=== PATIENT | female | born 1950 | race Caucasian/White ===

== ENCOUNTER → 2023-11-02 09:58 | Outpatient (BNVA) | payer MEDICARE, SELFPAY | PROVIDERS: PCP Nurse Practitioner Family; Visit Provider Nurse Practitioner Family | DX: E55.9 Vitamin D deficiency, unspecified (principal); E78.2 Mixed hyperlipidemia; I10 Essential (primary) hypertension; R07.9 Chest pain, unspecified; R73.03 Prediabetes; N28.9 Disorder of kidney and ureter, unspecified; E78.5 Hyperlipidemia, unspecified; Z98.49 Cataract extraction status, unspecified eye | CPT/HCPCS: 80053; 80061; 81003; 82306; 82570; 83036; 83735; 84100; 84156; 84443; 85025 ==

== ENCOUNTER → 2024-01-25 09:53 | Outpatient (BNVA) | payer MEDICARE, MEDICAID, SELFPAY | PROVIDERS: PCP Nurse Practitioner Family; Visit Provider Nurse Practitioner Family | DX: I10 Essential (primary) hypertension (principal); R60.9 Edema, unspecified; N28.9 Disorder of kidney and ureter, unspecified | CPT/HCPCS: 80053; 81003; 83880; 85025 ==

== ENCOUNTER → 2024-02-21 11:01 | Outpatient (BNVA) | payer MEDICARE, MEDICAID, SELFPAY | PROVIDERS: PCP Nurse Practitioner Family; Visit Provider Nurse Practitioner Family | DX: R06.02 Shortness of breath (principal); I10 Essential (primary) hypertension | CPT/HCPCS: 83880 ==

== ENCOUNTER → 2024-04-17 14:41 | Outpatient (BNVA) | payer MEDICARE, MEDICAID, SELFPAY | PROVIDERS: PCP Nurse Practitioner Family; Visit Provider Nurse Practitioner Family | DX: M25.562 Pain in left knee (principal); M17.12 Unilateral primary osteoarthritis, left knee | CPT/HCPCS: 73562 ==

== ENCOUNTER → 2024-05-24 08:58 | Outpatient (BNVA) | payer MEDICARE, MEDICAID, SELFPAY | PROVIDERS: PCP Nurse Practitioner Family; Visit Provider Nurse Practitioner Family | DX: R73.03 Prediabetes (principal); M25.561 Pain in right knee; M25.562 Pain in left knee; G89.29 Other chronic pain; Z12.31 Encounter for screening mammogram for malignant neoplasm of breast; Z12.11 Encounter for screening for malignant neoplasm of colon; M17.0 Bilateral primary osteoarthritis of knee; I10 Essential (primary) hypertension | CPT/HCPCS: 80053; 83036 ==

== ENCOUNTER → 2024-06-02 09:11 | Outpatient (BNVA) | payer MEDICARE, MEDICAID, SELFPAY | PROVIDERS: PCP Nurse Practitioner Family; Referring Provider Nurse Practitioner Family; Visit Provider Nurse Practitioner | DX: M17.0 Bilateral primary osteoarthritis of knee (principal) | CPT/HCPCS: 20610; 73560; 73565; 99204; J1100; J2795; J3301 ==

== ENCOUNTER → 2024-06-06 11:57 | Outpatient (BNVA) | payer MEDICARE, MEDICAID, SELFPAY | PROVIDERS: PCP Nurse Practitioner Family; Visit Provider Nurse Practitioner Family | DX: I10 Essential (primary) hypertension (principal); R73.03 Prediabetes | CPT/HCPCS: 81003; 82043 ==

== ENCOUNTER → 2024-06-27 11:48 | Outpatient (BNVA) | payer MEDICARE, MEDICAID, SELFPAY | PROVIDERS: PCP Nurse Practitioner Family; Visit Provider Nurse Practitioner Family | DX: N39.0 Urinary tract infection, site not specified (principal) | CPT/HCPCS: 81000 ==

== ENCOUNTER → 2024-09-06 09:45 | Outpatient (BNVA) | payer MEDICARE, MEDICAID, SELFPAY | PROVIDERS: PCP Nurse Practitioner Family; Visit Provider Nurse Practitioner | DX: M17.0 Bilateral primary osteoarthritis of knee (principal) | CPT/HCPCS: 20610; 99213; J7318 ==

== ENCOUNTER → 2024-10-19 13:02 | Outpatient (BNVA) | payer MEDICARE, MEDICAID, SELFPAY | PROVIDERS: PCP Nurse Practitioner Family; Visit Provider Nurse Practitioner | DX: M17.0 Bilateral primary osteoarthritis of knee (principal) | CPT/HCPCS: 20610; J1100; J2795; J3301 ==

== ENCOUNTER → 2024-11-29 13:04 | Outpatient (BNVA) | payer MEDICARE, MEDICAID, SELFPAY | PROVIDERS: PCP Nurse Practitioner Family; Visit Provider Nurse Practitioner Family | DX: R73.03 Prediabetes (principal); I10 Essential (primary) hypertension; E55.9 Vitamin D deficiency, unspecified; R60.9 Edema, unspecified; M85.80 Other specified disorders of bone density and structure, unspecified site | CPT/HCPCS: 80053; 80061; 81003; 82306; 83036; 84443; 85025; 87086 ==

== ENCOUNTER → 2025-01-17 07:51 | Outpatient (BNVA) | payer MEDICARE, MEDICAID, SELFPAY | PROVIDERS: PCP Nurse Practitioner Family; Visit Provider Nurse Practitioner | DX: M17.0 Bilateral primary osteoarthritis of knee (principal); Z71.89 Other specified counseling; G89.29 Other chronic pain | CPT/HCPCS: 20610; J1100; J2795; J3301; J9999 ==

== ENCOUNTER → 2025-01-25 09:32 | Outpatient (BNVA) | payer MEDICARE, MEDICAID, SELFPAY | PROVIDERS: PCP Nurse Practitioner Family; Visit Provider Nurse Practitioner Family | DX: R74.8 Abnormal levels of other serum enzymes (principal); R79.89 Other specified abnormal findings of blood chemistry | CPT/HCPCS: 80053 ==

== ENCOUNTER → 2025-03-05 08:43 | Outpatient (BNVA) | payer MEDICARE, MEDICAID, SELFPAY | PROVIDERS: PCP Nurse Practitioner Family; Visit Provider Nurse Practitioner | DX: M17.0 Bilateral primary osteoarthritis of knee (principal); G89.29 Other chronic pain | CPT/HCPCS: 73560; 73565; 99214 ==

== ENCOUNTER 2025-03-21 07:27 | Outpatient (CLI) | payer MEDICAID, SELFPAY ==
--- NOTE | 2025-03-21 07:30 | CT_ITS ---
WS: [id number] CT RIGHT KNEE, NONCONTRAST [facility] TECHNIQUE: Noncontrast CT of the RIGHT knee to include the RIGHT hip and ankle. CLINICAL INFORMATION: pain in right knee COMPARISON: None. DLP: 935.[address] scans at [facility] use at least one of these dose optimization techniques: automated exposure control; mA and/or kV adjustment per patient size (includes targeted exams where dose is matched to clinical indication); or iterative reconstruction. FINDINGS: Advanced tricompartmental arthritis RIGHT knee worse in the lateral joint compartment with [id number] articulation. Hypertrophic changes along the joint line. Vascular calcification. Hypertrophic patella. Osteopenia. Sigmoid diverticulosis CT/CT knee RT [place] [address]28 IMPRESSION: Images obtained for preoperative purposes.
== END 2025-03-21 07:28 | disposition home or self-care (01) ==
PROVIDERS: PCP Nurse Practitioner Family; Visit Provider Nurse Practitioner
DX: M17.0 Bilateral primary osteoarthritis of knee (principal)
CPT/HCPCS: 73700

== ENCOUNTER → 2025-03-28 09:17 | Outpatient (BNVA) | payer MEDICARE, MEDICAID, SELFPAY | PROVIDERS: PCP Nurse Practitioner Family; Visit Provider Nurse Practitioner | DX: M17.0 Bilateral primary osteoarthritis of knee (principal); M25.561 Pain in right knee; M25.562 Pain in left knee; G89.29 Other chronic pain; R79.89 Other specified abnormal findings of blood chemistry | CPT/HCPCS: 80053; 81000; 83036; 85025 ==

== ENCOUNTER → 2025-04-03 08:09 | Outpatient (BNVA) | payer MEDICARE, MEDICAID, SELFPAY | PROVIDERS: PCP Nurse Practitioner Family; Visit Provider Family Medicine | DX: Z01.818 Encounter for other preprocedural examination (principal) | CPT/HCPCS: 93005 ==

== ENCOUNTER → 2025-04-06 10:53 | Outpatient (BNVA) | payer MEDICARE, MEDICAID, SELFPAY | PROVIDERS: PCP Nurse Practitioner Family; Visit Provider Nurse Practitioner | DX: M19.012 Primary osteoarthritis, left shoulder (principal) | CPT/HCPCS: 20610; 73030; 99214; J1100; J2795; J3301; J9999 ==

== ENCOUNTER → 2025-04-20 07:48 | Outpatient (BNVA) | payer MEDICARE, MEDICAID, SELFPAY | PROVIDERS: PCP Nurse Practitioner Family; Visit Provider Nurse Practitioner | DX: M17.12 Unilateral primary osteoarthritis, left knee (principal); Z71.89 Other specified counseling | CPT/HCPCS: 20610; J1100; J2795; J3301; J9999 ==

== ENCOUNTER 2025-04-26 11:09 | Observation (INO) | payer MEDICARE, MEDICAID, SELFPAY ==
[2025-04-26] VITALS (28 sets, daily range): BP systolic 98–191; BP diastolic 47–70; PULSE 53–72; RESP 14–18; TEMP 36.3–36.8; O2SAT 92–100; BMI 38.7; BMI 39.3
[2025-04-26] MEDS: CELEcoxib 200 mg Capsule 400 MG PO (06:45)
[2025-04-26] MEDS: gabapentin 300 mg Capsule PO (06:46)
[2025-04-26] MEDS: sodium chloride 0.9% 1,000 ML 30 ML IV (06:46)
--- NOTE | 2025-04-26 06:52 | P.ANESASSM_ITS ---
Pre-Anesthetic Assessment Height/Weight: Height 1.55 m Weight 92.986 kg Temp Pulse Resp BP Pulse Ox O2 Del Method 97.5 F L 67 18 191/60 100 Room Air 04/26/25 06:35 04/26/25 06:35 04/26/25 06:35 04/26/25 06:35 04/26/25 06:35 04/26/25 06:40 Operation Date: 04/26/25 07:00 Proposed Procedures p Right Todd Robot Total Knee Arthroplasty(Right) - Natalya Uribe MD Familial anesthetic complications: None Was Beta Sonal taken within 24 hours: N/A Was Clonidine taken within 24 hours: N/A Last intake: Intake Last Liquid Date 04/25/25 Last Liquid Time 21:30 Last Solid Date 04/25/25 Last Solid Time 21:30 Social No alcohol and No tobacco Exam alert, oriented x 3, clear to auscultation bilaterally and regular rate & rhythm Airway Mallampati: Class I CV/HEM Hypertension Metabolic Hyperlipidemia Anesthetic Plan ASA status: 2 Anesthesia: Regional (specify below) Other: Spinal + exparel injection Risk of > 500 ml blood loss (7ml/kg in children): No Medications/Allergies Home Medications ?Medication ?Instructions ?Recorded ?Confirmed ?Last Taken ?Type acetaminophen 500 mg tablet 1,000 mg (2 x 500 mg) PO B ID PRN 11/26/23 04/25/25 Unknown Rx pain 90 days #360 tabs ergocalciferol (vitamin D2) 1,250 50,000 unit PO .week ly #4 caps 11/29/23 04/25/25 04/22/25 Rx mcg (50,000 unit) capsule (Vitamin D2) Bedside Toilet #1 ea 04/12/24 04/20/2504/02 Rx semaglutide 7 mg tablet (Rybelsus) 7 mg PO DAILY #30 t abs 03/23/25 04/25/25 04/19/25 Rx hydralazine 50 mg tablet 50 mg PO BID #180 tabs 03/2704/25/25 04/26/25 04:00 Rx lisinopril 40 mg tablet 40 mg PO DAILY #90 tabs 04/0104/25/25 04/25/25 Rx miscellaneous medical supply #1 ea 04/23/25 04/25/25 Rx diclofenac sodium 1 % topical gel 2 g topical QID PRN Pain, Mild 04/25/25 04/25/25 Unknown History (Voltaren Arthritis Pain) rosuvastatin 20 mg tablet 20 mg PO DAILY 04/25/2504/0204/25/25 History Allergies Allergy/AdvReac Type Severity Reaction Status Date / Time No Known Allergies Allergy Verified 04/20/25 07:59 [facility] Anesthesia Medical History (Updated 04/23/25 @ 20:39 by JAIRON Larkin) Patient is scheduled for surgical procedure Osteoarthritis of left knee Rotator cuff arthropathy of left shoulder Primary osteoarthritis, left shoulder Osteoarthritis of right knee Elevated serum creatinine Elevated liver enzymes Obesity Metabolic syndrome Decreased renal function Vitamin D deficiency Urinary tract infection Osteoarthritis of knees, bilateral Enrolled in chronic care management Osteopenia Tricompartment osteoarthritis of both knees Postmenopausal Osteoarthritis, knee Osteoarthritis Chronic knee pain Shortness of breath Edema Colon cancer screening Arthritis pain Prediabetes Chest pain Hypertension Mixed hyperlipidemia Surgical History S/P hysterectomy S/P gastric surgery S/P cataract surgery Social History Smoking and tobacco/nicotine status: never used tobacco/nicotine Current occupation: Retired
[2025-04-26] MEDS: acetaminophen 1,000 MG/100 ML PIGGYBACK 400 MG IV ×3 (06:55→23:33)
--- NOTE | 2025-04-26 06:59 | W.PM.OPSUD ---
Surgery/Procedure H&P Update DATE OF PROCEDURE: April 26, 2025 DATE H&P PERFORMED: 04/20/25 H&P UPDATE INFORMATION: I have reviewed H&P completed within last 30 days, I have examined patient prior to procedure, No changes to prior documentation, H&P is in [facility] EMR on date indicated and Risks and benefits of the procedure reviewed PLANNED PROCEDURE: Operation Date: 04/26/25 07:00 Proposed Procedures p Right Todd Robot Total Knee Arthroplasty(Right) - Natalya Uribe MD Related Problem List Diagnoses (1) Osteoarthritis of right knee: Qualifiers: Osteoarthritis type: primary Qualified Code(s): M17.11 - Unilateral primary osteoarthritis, right knee
[2025-04-26] MEDS: ceFAZolin 2,000 mg SDV 2000 MG IVP ×3 (07:02→23:20)
[2025-04-26] MEDS: tranexamic acid 1,000 mg/10mL SDV 1000 MG (07:45)
[2025-04-26] MEDS: ceFAZolin 1,000 mg SDV 2000 MG IRRIGATION (08:08)
[2025-04-26] MEDS: BUPivacaine liposome 13.3 mg/mL SDV 20 mL 266 MG INFILTRATI (08:11)
[2025-04-26] MEDS: BUPivacaine 0.5% INJ 30 mL XX (08:11)
[2025-04-26] MEDS: vancomycin 1,000 MG SDV 1000 MG INTRA-ARTI (08:13)
--- NOTE | 2025-04-26 10:06 | XR_ITS ---
WS: [id number] Exam: XR knee RT 1-2V [id number] Date/Time of Exam: 04/26/2025 10:06 AM Reason For Exam: Status post right total knee arthroplasty Comparison 03/05/2025. RIGHT total knee arthroplasty is in satisfactory position. Postop changes in the adjacent soft tissues. Anterior surgical skin clips. XR/XR knee RT 1-2V [id number] IMPRESSION: 1. RIGHT total knee replacement in satisfactory position.
[2025-04-26] MEDS: fentaNYL 50 mcg/mL INJ 2mL IVP ×2 (10:13→10:27)
--- NOTE | 2025-04-26 10:31 | PM.OP ---
Operative Report Date of procedure: April 26, 2025 Pre-op diagnosis: Severe degenerative osteoarthritis right knee with valgus deformity and hyperextension Post-op diagnosis: Severe degenerative osteoarthritis right knee with valgus deformity and hyperextension Post-op findings: Severe degenerative osteoarthritis right knee with hyperextension, valgus deformity, and obesity. Procedure done: Right total knee arthroplasty with Todd guidance Implants: The Leanne total knee system with a size 3 triathlon beaded cruciate retaining femur right, a triathlon titanium tibial component size 2 beaded, a triathlon X3 tibial bearing CS insert size 2 x 11 mm and a beaded triathlon titanium asymmetric patella size 32 x 10 mm Specimens removed/disposition: Bone, disposed of Pathology: None Surgeon: Natalya Uribe MD Jacquard Fixer: Mai Berger whose services were required for retraction, positioning, intraoperative exposure, and closure Anesthesia: Spinal (With MAC, ASA 2) Estimated blood loss (mL): 180 Tourniquet time (min): 0 (Not utilized) IV fluids (mL): 1,600 (Normal saline with additional 150 mL albumin) Urine output (mL): 150 Complications: None Findings: As noted above Condition: stable Disposition: PACU (Then to the floor for postoperative rehabilitation and pain management) Brief History: This 74-year-old woman presented with complaints of severe right knee pain. The patient has significant limitations in her activities of daily living. X-rays demonstrated severe degenerative osteoarthritis with valgus deformity. She failed anti-inflammatory medications, corticosteroid injections, viscosupplementation injections attempted bracing and physical therapy. Right total knee arthroplasty was discussed. The patient wished to proceed with total knee arthroplasty understanding the risks and complications. She was seen the morning of surgery and given further opportunity to ask questions and have them answered. Procedure: The patient was brought to the operating theater, and after undergoing adequate spinal anesthesia with MAC, ASA 2, the right lower extremity was prepped with Dura-Prep and draped in usual fashion following placement of a tourniquet high on the leg. The leg was then draped free.? Tourniquet was not elevated throughout the surgical procedure. Prior to commencement of the procedure, a surgical pause was performed, and at the time of the surgical pause, we confirmed the site and side of surgery. Additionally, we confirmed the appropriate and timely administration of preoperative antibiotics, Ancef 2 g.? The availability of equipment was confirmed, and the patient's identity was verbalized as well. Following the surgical pause, an incision was made centering over the patella continuing proximally and distally as necessary to allow access to the knee joint. Dissection continued through skin and soft tissues using a scalpel. Hemostasis was obtained using electrocautery. The skin incision was followed by a median parapatellar arthrotomy. The leg was extended and the patella was able to be displaced laterally.? Appropriate arrays and markers were placed in appropriate position for use of the Todd.? Preoperative planning had been accomplished and was discussed in detail with the [facility] bank representative.? Intraoperative mapping of the femur and tibia was accomplished after the arrays were placed.? Internal markers were also placed.? Once we had accomplished the Todd mapping, we began the appropriate resections for placement of the prosthesis.? The plan was for a cruciate retaining right total knee arthroplasty. Once appropriate mapping had been accomplished retraction was established using manual retraction by surgical technicians and also the Todd leg positioner and retractors.? The knee was evaluated.? There was significant osteoarthritic change as well as a significant flexion contracture and severe varus deformity.? Appropriate bone resection was accomplished using the Todd.? The femur was sized to a size 3.? Following femoral cuts, attention was directed to the tibia.? Osteophytes were removed prior to this portion of the procedure.? We had performed a medial release at the beginning of the procedure to allow for placement of the array.? Proximal tibia was evaluated, and it was felt that appropriate size for the tibia was a size 2.? The size 2 tray was noted to fit nicely with good coverage.? Rim fit was accomplished with the size 2. A trial reduction was accomplished after osteophytes have been removed as well as the medial and lateral menisci.? We had removed the anterior cruciate ligament at the beginning of the case and preserved the posterior cruciate ligament.? Trial reduction was accomplished with a size 3 femoral cruciate retaining component, a size 2 tibial tray and a size 2 CS tibial bearing insert which initially was a 9 mm thickness. After trial with this, a trial reduction was accomplished with a size 2 x 10 mm tibial bearing insert, CS. After this trial, plans were made for an 11 mm CS tibial bearing insert. Alignment was felt to be appropriate as well.? Trial components were removed after the femur had been drilled.? Prior to removal of the tibial tray which had been pinned in position with appropriate rotation as determined by the Todd plan, we broached the tibia.? Subsequently, the 4 drill holes were made for the prosthetic component.? All trial components were removed, and the wound was irrigated.? Plans were made for insertion of the prosthetic components.? Prior to this, the patella was manually prepared.? After resection of the articular surface with the jogging system, it was measured and measured a 32 mm patella.? We resected approximately 8 mm of patella.? Patellar height was restored with the patellar component. Once again, the wound was irrigated. The Tritanium tibia was impacted into position.? The beaded femur was then impacted into position in a cementless fashion. The CS tibial insert was placed prior to placement of the femoral component. The patella was pressed into position with a patellar clamp.? Exparel was injected about the components deep and superficially.? The knee was then copiously irrigated with betadine and saline and suctioned dry. Attention was then directed to closure. Closure was accomplished with 0 Vicryl in the fascial tissues.? The suture line of 0 Vicryl was supplemented with strata fix, #1, with a running suture from proximal to distal and a second running stitch from distal to proximal.? This was followed by Surgiflo and vancomycin powder.? Following this, a 2-0 Strata Fix was used in the subcutaneous tissues, and the skin was closed with 3-0 Strata fix.? Care was taken to assure an excellent subcutaneous as well as skin closure.? A sterile dressing was then placed consisting of Dermabond Prineo, OpSite, ABD, sterile soft roll, and an Nam wrap including over the foot. The patient was returned the Recovery Room in a satisfactory condition. X-rays were obtained and reviewed there.? The patient will be discharged to the floor for postoperative rehabilitation and pain management. Related Problem List Diagnoses (1) Osteoarthritis of right knee: (2) Obesity, Class II, BMI 35-39.9:
[2025-04-26] MEDS: HYDROmorphone 1 mg/mL INJ 1ml 0.5 MG IVP (10:48)
[2025-04-26] MEDS: oxyCODONE 5 mg IR Tab/Cap PO ×3 (11:31→21:18)
--- NOTE | 2025-04-26 12:14 | PC.PHAR ---
Pt takes care of her own medications. Pt has 2 orders for lisinopril-1st is Lisinopril-hctzs 20-25 qam, and Lisinopril 40mg qpm. Pt no longer uses Trulicity.
[2025-04-26] MEDS: ondansetron 2 mg/ML SDV 2 mL 4 MG IVP (13:03)
[2025-04-26] MEDS: chlorhexidine gluconate 0.12% Btl 473 mL 30 ML MUCOUS MEM ×3 (13:03→21:18)
[2025-04-26] MEDS: tranexamic acid 1,000 MG/100 ML PREMIX 600 MG IV (13:25)
--- NOTE | 2025-04-26 13:47 | ANE.PACU2 ---
Inpatient post-anesthesia follow up: Airway intact: Yes Vital signs: Temperature 97.4 F Pulse Rate 60 Respiratory Rate 16 Blood Pressure 154/59 Pulse Oximetry 92 Oxygen Delivery Me thod Room Air Oxygen Flow Rate Fraction of Inspir ed Oxygen Hydration adequate: Yes Nausea and vomiting: No Pain level: 1 Mental status: Baseline
[2025-04-26] MEDS: metoclopramide 5 mg/mL SDV 2 mL 10 MG IV (14:30)
[2025-04-26] MEDS: sennosides-docusate Tablet 2 TAB PO (17:08)
[2025-04-26] MEDS: iron polysaccharide complex 150 mg Capsule PO (17:08)
[2025-04-26] MEDS: calcium carbonate 500 mg Chew Tablet 1000 MG PO (17:08)
[2025-04-26] MEDS: mupirocin oint 22 gm 1 APPLIC NASAL (17:09)
[2025-04-27 04:07] VITALS: RESP 16; O2SAT 97
[2025-04-27] MEDS: oxyCODONE 5 mg IR Tab/Cap PO ×3 (04:07→14:21)
[2025-04-27] MEDS: ondansetron 2 mg/ML SDV 2 mL 4 MG IVP (04:12)
[2025-04-27 04:34] LABS: Basophils % 0.1 %; Eosinophils % 0.1 %; Hematocrit 35.1 % (36-47); Lymphocytes % 7.5 %; Mean Corpuscular HGB Conc 31.9 g/dL (30-55); Mean Corpuscular Hemoglobin 29.2 pg (27-33); Mean Corpuscular Volume 91.6 fl (85-98); Mean Platelet Volume 9.5 fL (7.4-10.4); Monocytes # 0.9 10^3/uL (0.2-0.9); Monocytes % 6.7 %; Neutrophils % 85.2 %; Nucleated Red Blood Cells % 0 %; Platelet Count 161 10^3/cmm (157-399); Red Blood Count 3.83 10^6/uL (3.85-5.65); Red Cell Distribution Width 13.6 % (12.1-15.1); White Blood Count 13.63 10^3/uL (3.29-11.43)
[2025-04-27 04:55] LABS: Anion Gap 15.2 (5-19); Blood Urea Nitrogen 26 mg/dL (8-23); Calcium 8.9 mg/dL (8.5-10.5); Carbon Dioxide 23 mmol/L (22-29); Chloride 102 mmol/L (98-107); Creatinine Clr Calc Pharmacy 56.9612; Glucose 140 mg/dL (65-115); Osmolality Calculated 289 mOsm/kg (285-295); Potassium 4.2 mmol/L (3.5-5.1); Sodium 136 mmol/L (136-145)
[2025-04-27 06:00] VITALS: BMI 39.3
[2025-04-27] MEDS: acetaminophen 1,000 MG/100 ML PIGGYBACK 400 MG IV (07:15)
[2025-04-27] MEDS: chlorhexidine gluconate 0.12% Btl 473 mL 30 ML MUCOUS MEM ×2 (08:44→14:21)
[2025-04-27] MEDS: ceFAZolin 2,000 mg SDV 2000 MG IVP (08:45)
[2025-04-27] MEDS: multivitamin therapeutic Tablet 1 TAB PO (08:47)
[2025-04-27] MEDS: mupirocin oint 22 gm 1 APPLIC NASAL (08:47)
[2025-04-27] MEDS: iron polysaccharide complex 150 mg Capsule PO ×2 (08:47→17:31)
[2025-04-27] MEDS: sennosides-docusate Tablet 2 TAB PO ×2 (08:47→17:31)
[2025-04-27 08:49] VITALS: RESP 15
[2025-04-27] MEDS: cholecalciferol (vitamin D3) 1,000 unit Tablet 1000 UNIT PO (08:49)
[2025-04-27 09:00] VITALS: BP 151/87; PULSE 62; RESP 15; TEMP 36.9; O2SAT 98
[2025-04-27 14:21] VITALS: RESP 16
--- NOTE | 2025-04-27 14:29 | PM.DCS ---
Discharge Providers Date of Admission: 04/26/25 11:09 Date of Discharge: April 27, 2025 Attending Provider at Admission: Natalya Uribe MD Attending Provider at Discharge: Natalya Uribe MD Primary Care Provider: JAIRON Rodarte Diagnoses at Discharge Discharge Diagnosis (1) Osteoarthritis of right knee: Status: Chronic Qualifiers: Osteoarthritis type: primary Qualified Code(s): M17.11 - Unilateral primary osteoarthritis, right knee (2) Obesity, Class II, BMI 35-39.9: Status: Acute (3) Status post total right knee replacement not using cement: Status: Acute Permanent problem details: Date of procedure: April 26, 2025 Diagnosis: Severe degenerative osteoarthritis right knee with valgus deformity and hyperextension Procedure done: Right total knee arthroplasty with Todd guidance Implants: The [employer] total knee system with a size 3 triathlon beaded cruciate retaining femur right, a triathlon titanium tibial component size 2 beaded, a triathlon X3 tibial bearing CS insert size 2 x 11 mm and a beaded triathlon titanium asymmetric patella size 32 x 10 mm Reason for Visit Reason for Visit: M17.11 Brief History: This 74-year-old woman presented with complaints of severe right knee pain. The patient has significant limitations in her activities of daily living. X-rays demonstrated severe degenerative osteoarthritis with valgus deformity. She failed anti-inflammatory medications, corticosteroid injections, viscosupplementation injections attempted bracing and physical therapy. Right total knee arthroplasty was discussed. The patient wished to proceed with total knee arthroplasty understanding the risks and complications. She was seen the morning of surgery and given further opportunity to ask questions and have them answered. Physical Exam Const: COMMON NORMALS: no acute distress, patient oriented x3 and alert; negative for average body habitus GENERAL APPEARANCE: cooperative and comfortable NUTRITIONAL APPEARANCE: obese ORIENTATION/CONSCIOUSNESS: Yes awake HENMT: COMMON NORMALS: normocephalic and atraumatic HEAD & SCALP: normocephalic and atraumatic Eye: GENERAL EYE: appearance normal, both eyes and all related structures Chest: COMMONS NORMALS: normal inspection of the chest Resp: COMMON NORMALS: normal respiratory effort EFFORT & INSPECTION: Yes able to speak in complete sentences and Yes symmetric chest movement Extremity: RIGHT LOWER EXTREMITY: Yes knee joint (Dressing is dry and intact) Right knee: Yes inspection (No significant swelling or bruising), Yes ROM (Not evaluated) and Yes neurovascular exam (Intact distally with no evidence of DVT) Neuro: COMMON NORMALS: patient oriented x3 SENSORIUM/ORIENTATION: Yes alert Psych: COMMON NORMALS: mental status grossly normal APPEARANCE: Yes grossly normal ATTITUDE: Yes calm and Yes engaged ATTENTION/CONCENTRATION: Yes attention grossly intact Skin: COMMON NORMALS: no rashes or lesions noted GENERAL SKIN EXAM: no rashes or lesions noted Urinary Catheter Management: Campos: Cath Placed During This Visit: yes, but has since been removed by the nurse Reason for Continuing Indwelling Catheter: Decision to DC Catheter Date Urinary Catheter Removed: 04/27/25 Time Urinary Catheter Discontinued: 09:30 Discharge Data Studies Completed and Pending Completed Studies During Hospitalization Category Date Time Status XR knee RT 1-2V [id number] Routine Exams 04/26/25 10:06 Completed Radiology Impressions Knee X-Ray 04/26/25 10:06 IMPRESSION: 1. RIGHT total knee replacement in satisfactory position. Laboratory Results WBC 13.63 10^3/uL (3.29-11.43) H 04/27/25 04:15 RBC 3.83 10^6/uL (3.85-5.65) L 04/27/25 04:15 Hgb 11.20 g/dL (11.27-16.99) L 04/27/25 04:15 Hct 35.1 % (36-47) L 04/27/25 04:15 MCV 91.6 fl (85-98) 04/27/25 04:15 MCH 29.2 pg (27-33) 04/27/25 04:15 MCHC 31.9 g/dL (30-55) 04/27/25 04:15 RDW 13.6 % (12.1-15.1) 04/27/25 04:15 Plt Count 161 10^3/cmm (157-399) 04/27/25 04:15 MPV 9.5 fL (7.4-10.4) 04/27/25 04:15 Neut % (Auto) 85.2 % 04/27/25 04:15 Lymph % (Auto) 7.5 % 04/27/25 04:15 Limestone % (Auto) 6.7 % 04/27/25 04:15 Eos % (Auto) 0.1 % 04/27/25 04:15 Baso % (Auto) 0.1 % 04/27/25 04:15 Neut # (Auto) 11.60 10^3/uL (1.8-7.7) H 04/27/25 04:15 Lymph # (Auto) 1.0 10^3/uL (0.8-4.8) 04/27/25 04:15 Limestone # (Auto) 0.9 10^3/uL (0.2-0.9) 04/27/25 04:15 Eos # (Auto) 0.0 10^3/uL (0.0-0.8) 04/27/25 04:15 Baso # (Auto) 0.0 10^3/uL (0.0-0.1) 04/27/25 04:15 Nucleated RBC % (auto) 0 % 04/27/25 04:15 Nucleated RBCs # 0.0 /100WBC 04/27/25 04:15 Sodium 136 mmol/L (136-145) 04/27/25 04:15 Potassium 4.2 mmol/L (3.5-5.1) 04/27/25 04:15 Chloride 102 mmol/L (98-107) 04/27/25 04:15 Carbon Dioxide 23 mmol/L (22-29) 04/27/25 04:15 Anion Gap 15.2 (5-19) 04/27/25 04:15 BUN 26 mg/dL (8-23) H 04/27/25 04:15 Creatinine 0.9 mg/dL (0.5-0.9) 04/27/25 04:15 GFR Calculation Not Reportable 04/27/25 04:15 Glucose 140 mg/dL (65-115) H 04/27/25 04:15 Calculated Osmolality 289 mOsm/kg (285-295) 04/27/25 04:15 Calcium 8.9 mg/dL (8.5-10.5) 04/27/25 04:15 Vitals Last Vital Signs Temp 98.5 F 04/27/25 09:00 Pulse 62 04/27/25 09:00 Resp 16 04/27/25 14:21 BP 151/87 04/27/25 09:00 Pulse Ox 98 04/27/25 09:00 O2 Del Method Room Air 04/27/25 09:00 Discharge Plan Discharge Patient Disposition: Home Health Service Condition: Stable Prescriptions: New aspirin 325 mg Tablet,Delayed Release (Dr/Ec) 325 mg PO DAILY 30 Days Qty: 30 0RF oxycodone 5 mg Tablet 5 mg PO Q4H PRN (Reason: Moderate To Severe Pain) 7 Days Qty: 30 0RF Continued (DME) Bedside Toilet See Rx Instructions .Route .MEDSUPPLY Qty: 1 0RF Rx Instructions: As directed Rybelsus 7 mg tablet 7 mg PO DAILY Qty: 30 1RF hydralazine 50 mg tablet 50 mg PO BID Qty: 180 0RF (DME) miscellaneous medical supply Misc See Rx Instructions .Route Qty: 1 0RF Rx Instructions: As directed Bedside Commode kit for PRN use. rosuvastatin 20 mg tablet 20 mg PO DAILY diclofenac sodium [Voltaren Arthritis Pain] 1 % gel 2 g topical QID PRN (Reason: Pain, Mild) Rx Instructions: apply to area of pain lisinopril-hydrochlorothiazide 20-25 mg tablet 1 tab PO QAM lisinopril 40 mg tablet 40 mg PO QPM Held acetaminophen 500 mg tablet 1,000 mg PO BID PRN (Reason: pain) 90 Days Qty: 360 1RF Hold Instructions: Until 15 days of 3 times per day Discharge Orders: Discharge Order (Routine); Ordered 04/27/25 Ordered By: Natalya Uribe Other Ambulatory Orders: DME: Walker (Order) Location: None Selected Ordered By: Natalya Uribe Referrals: [facility] [Outside] Natalya Uribe MD [Physician, Orthopedics] - 05/14/25 8:30 am Discharge Diet: Advance as tolerated and Usual diet Discharge Activity: Increase activity as tolerated, Limit activity as instructed, Use walker/crutches as instructed and As per PT/OT instructions Patient Instructions: Acute Wound Care (DC), Precautions after Total Joint Replacement Surgery (GEN), Total Knee Replacement (GEN), Opioid Safety, Post Anesthesia Care, Patient Portal & Ashok Instructions Activity Restrictions/Additional Instructions: Ice and elevation to right knee. You may weight-bear as tolerated. Physical therapy to instruct in ambulation, strengthening, and gait training. You may shower after you get home, but do not submerge the knee in water. Maintain dressing until you are seen in the office unless it lifts up and begins to leak. If it does, you may remove the dressing but leave the sheath clot type material in place. Discharge Attestations Time Spent in Discharge Care*: greater than 30 min Specific Discharge Activities: educating patient, documenting/other paperwork and evaluating patient/reviewing data Quality Metrics Clinical Quality Measures [ No reported AMI, CVA or VTE this stay] Coding Level of Care Code Acute Code for Chg Fwd Diagnoses Primary osteoarthritis of right knee M17.11 Osteoarthritis type: primary Obesity, Class II, BMI 35-39.9 E66.812 Status post total right knee replacement not using cement Z96.651
--- NOTE | 2025-04-27 17:01 | PC.NURSE ---
I received a call from Crys Cazares, RN stating that as patient was preparing to leave, she mentioned that her walker at home is a rollator walker, not a FWW. Edith asked if that was adequate and I told her we could place an order for a FWW as it would be more stable for patient. I called and spoke with Dr. Uribe and informed her of this and she is in agreement with the FWW for patient's home use. I placed the order as instructed and printed it to OB. I called back and spoke with Edith and reviewed the information with her and provided her instructions on calling HOME to inform them of the order, faxing the order to them, and providing a copy of the printed order if needed when they presented with the walker. She verbalizes understanding. Patient will d/c home after FWW is delivered.
[2025-04-27 17:30] VITALS: BP 188/63; PULSE 76; RESP 16; TEMP 36.8; O2SAT 97
[2025-04-27] MEDS: acetaminophen 500 mg Tablet 1000 MG PO (17:30)
[2025-04-27] MEDS: aspirin 325 mg EC Tablet PO (17:32)
== END 2025-04-27 18:05 | disposition home health service (06) ==
LOC: MEDSURG 11:19 → OBGYN 17:42
PROVIDERS: Admitting Provider Specialist; PCP Nurse Practitioner Family; Visit Provider Specialist
PROC: 8E0Y0CZ Robotic Assisted Procedure of Lower Extremity, Open Approach (ICD-10-PCS; CPT 27447; principal; 2025-04-26 07:00)
DX: M17.11 Unilateral primary osteoarthritis, right knee (principal); M21.061 Valgus deformity, not elsewhere classified, right knee; I10 Essential (primary) hypertension; E78.5 Hyperlipidemia, unspecified; E66.9 Obesity, unspecified; Z68.39 Body mass index [BMI] 39.0-39.9, adult
CPT/HCPCS: 27447; 20985; 36415; 51702; 73560; 80048; 85025; 97110; 97116; 97161; 97165; 97530; A4216; C1776; G0378; J0131; J0171; J0666; J0690; J1171; J2371; J2405; J2704; J2765; J3010; J3370; J3490; J7030; J9999; P9045

== ENCOUNTER 2025-05-01 05:00 | Outpatient (RCR) | payer MEDICARE, MEDICAID, SELFPAY | END 2025-05-31 23:59 | disposition home or self-care (01) | LOC: WPT 05:00 | PROVIDERS: PCP Nurse Practitioner Family; Visit Provider Nurse Practitioner | DX: Z47.1 Aftercare following joint replacement surgery (principal); Z96.651 Presence of right artificial knee joint | CPT/HCPCS: 97110; 97112; 97161; 97530 ==

== ENCOUNTER → 2025-05-14 08:24 | Outpatient (BNVA) | payer MEDICARE, MEDICAID, SELFPAY | PROVIDERS: PCP Nurse Practitioner Family; Visit Provider Nurse Practitioner | DX: Z98.890 Other specified postprocedural states (principal); Z96.651 Presence of right artificial knee joint | CPT/HCPCS: 99024 ==

== ENCOUNTER 2025-06-01 05:00 | Outpatient (RCR) | payer MEDICARE, MEDICAID, SELFPAY | END 2025-07-01 23:59 | disposition home or self-care (01) | LOC: WPT 05:00 | PROVIDERS: PCP Nurse Practitioner Family; Visit Provider Nurse Practitioner | DX: Z47.1 Aftercare following joint replacement surgery (principal); Z96.651 Presence of right artificial knee joint | CPT/HCPCS: 97110; 97112; 97140; 97530 ==

== ENCOUNTER → 2025-06-11 10:39 | Outpatient (BNVA) | payer MEDICARE, MEDICAID, SELFPAY | PROVIDERS: PCP Nurse Practitioner Family; Visit Provider Nurse Practitioner | DX: Z98.890 Other specified postprocedural states (principal); Z96.651 Presence of right artificial knee joint | CPT/HCPCS: 73560; 73565; 99024 ==

== ENCOUNTER 2025-06-14 10:09 | Outpatient (CLI) | payer MEDICARE, MEDICAID, SELFPAY ==
--- NOTE | 2025-06-14 10:17 | US_ITS ---
WS: [id number] BILATERAL 3D TOMOSYNTHESIS DIGITAL DIAGNOSTIC MAMMOGRAPHY WITH CAD CLINICAL INFORMATION: N64.4 - Mastodynia HISTORY: LEFT breast pain COMPARISON: None. TECHNIQUE: Bilateral CC, MLO, and ML views. FINDINGS: Scattered fibroglandular densities bilaterally. A few incidental punctate calcifications. Vascular calcification. No suspicious focal mass, asymmetry, calcifications, or architectural distortion. ULTRASOUND BREAST LEFT TECHNIQUE: Ultrasound left breast focused area of concern. CLINICAL INFORMATION: N64.4 - Mastodynia FINDINGS: Ultrasound LEFT breast area of interest at the 3 to 6 o'clock position axillary tail. Normal underlying parenchymal tissue. No cystic or solid lesions. No suspicious lesions in the area of interest. US/US breast LT limited* [id number] IMPRESSION: DENSITY: There are scattered areas of fibroglandular density. BI-RADS: 2 - Benign. FOLLOW UP: 1 Year Follow-up Recommend return to annual screening mammography.
--- NOTE | 2025-06-14 10:30 | MM_ITS ---
WS: [id number] BILATERAL 3D TOMOSYNTHESIS DIGITAL DIAGNOSTIC MAMMOGRAPHY WITH CAD CLINICAL INFORMATION: N64.4 - Mastodynia HISTORY: LEFT breast pain COMPARISON: None. TECHNIQUE: Bilateral CC, MLO, and ML views. FINDINGS: Scattered fibroglandular densities bilaterally. A few incidental punctate calcifications. Vascular calcification. No suspicious focal mass, asymmetry, calcifications, or architectural distortion. ULTRASOUND BREAST LEFT TECHNIQUE: Ultrasound left breast focused area of concern. CLINICAL INFORMATION: N64.4 - Mastodynia FINDINGS: Ultrasound LEFT breast area of interest at the 3 to 6 o'clock position axillary tail. Normal underlying parenchymal tissue. No cystic or solid lesions. No suspicious lesions in the area of interest. MM/MM diag BI tomosynthesis [id number] IMPRESSION: DENSITY: There are scattered areas of fibroglandular density. BI-RADS: 2 - Benign. FOLLOW UP: 1 Year Follow-up Recommend return to annual screening mammography.
== END 2025-06-14 10:10 | disposition home or self-care (01) ==
LOC: RAD 10:10
PROVIDERS: PCP Nurse Practitioner Family; Visit Provider Nurse Practitioner Family
DX: N64.4 Mastodynia (principal); R92.323 Mammographic fibroglandular density, bilateral breasts
CPT/HCPCS: 76642; 77062; G0279

== ENCOUNTER 2025-07-02 05:00 | Outpatient (RCR) | payer MEDICARE, MEDICAID, SELFPAY | END 2025-07-31 23:59 | disposition home or self-care (01) | LOC: WPT 05:00 | PROVIDERS: PCP Nurse Practitioner Family; Visit Provider Nurse Practitioner | DX: Z47.1 Aftercare following joint replacement surgery (principal); Z96.651 Presence of right artificial knee joint | CPT/HCPCS: 97110; 97112; 97530 ==

== ENCOUNTER → 2025-07-20 10:12 | Outpatient (BNVA) | payer MEDICARE, MEDICAID, SELFPAY | PROVIDERS: PCP Nurse Practitioner Family; Visit Provider Nurse Practitioner | DX: M17.12 Unilateral primary osteoarthritis, left knee (principal) | CPT/HCPCS: 73560; 73565; 99214 ==

== ENCOUNTER → 2025-07-23 11:18 | Outpatient (BNVA) | payer MEDICARE, MEDICAID, SELFPAY | PROVIDERS: PCP Nurse Practitioner Family; Visit Provider Nurse Practitioner | DX: M19.012 Primary osteoarthritis, left shoulder (principal); Z71.89 Other specified counseling | CPT/HCPCS: 20610; 36415; 80053; 81001; 85025; J1100; J2795; J3301; J9999 ==

== ENCOUNTER 2025-07-27 12:09 | Outpatient (CLI) | payer MEDICARE, MEDICAID, SELFPAY ==
--- NOTE | 2025-07-27 12:30 | CT_ITS ---
WS: [id number] CT LEFT KNEE, NONCONTRAST [facility] TECHNIQUE: Noncontrast CT of the LEFT knee to include the LEFT hip and ankle. CLINICAL INFORMATION: pain in left knee COMPARISON: None. DLP: 933.[address] scans at [facility] use at least one of these dose optimization techniques: automated exposure control; mA and/or kV adjustment per patient size (includes targeted exams where dose is matched to clinical indication); or iterative reconstruction. FINDINGS: Osteopenia. Moderate to advanced arthritis LEFT knee with hypertrophic patella. Vascular calcification. Tiny suprapatellar effusion. Small lobulated popliteal cyst measuring 2.1 cm. Moderate degenerative narrowing both hips. Sigmoid diverticulosis. CT/CT knee LT [facility] [id number] IMPRESSION: Images obtained for preoperative purposes.
== END 2025-07-27 12:10 | disposition home or self-care (01) ==
PROVIDERS: PCP Nurse Practitioner Family; Visit Provider Nurse Practitioner
DX: M17.12 Unilateral primary osteoarthritis, left knee (principal); Z01.818 Encounter for other preprocedural examination
CPT/HCPCS: 73700; 99213

== ENCOUNTER → 2025-08-20 11:43 | Outpatient (BNVA) | payer MEDICARE, MEDICAID, SELFPAY | PROVIDERS: PCP Nurse Practitioner Family; Visit Provider Nurse Practitioner | DX: Z01.818 Encounter for other preprocedural examination (principal); M17.12 Unilateral primary osteoarthritis, left knee; R73.03 Prediabetes | CPT/HCPCS: 80053; 81000; 83036; 85025 ==

== ENCOUNTER 2025-08-21 09:51 | Observation (INO) | payer MEDICARE, MEDICAID, SELFPAY ==
[2025-08-21] VITALS (22 sets, daily range): BP systolic 141–185; BP diastolic 49–85; PULSE 57–76; RESP 15–18; TEMP 36.3–36.8; O2SAT 10–100; BMI 34.0; BMI 38.8
--- NOTE | 2025-08-21 06:27 | ANES.PREANE2 ---
Pre-Anesthetic Assessment Height/Weight: Height 5 ft 1 in Preop Diagnosis: Knee arthritis Operation Date: 08/21/25 07:00 Proposed Procedures p LEFT Todd Robot Total Knee Arthroplasty(Left) - Natalya Uribe MD Was Beta Sonal taken within 24 hours: N/A Was Clonidine taken within 24 hours: N/A Social No alcohol and No tobacco Exam alert, oriented x 3, clear to auscultation bilaterally and regular rate & rhythm Airway Submandibular: within normal limits Cervical ROM: within normal limits Mallampati: Class I Comments: Comments: No upper teeth, denies any loose teeth on the bottom Anesthetic Plan ASA status: 2 Anesthesia: MAC and Regional (specify below) Other: No prior issues with anesthesia NPO since yesterday evening Patient had similar procedure done in April under spinal anesthetic and did well History of hypertension on lisinopril?HCTZ Prediabetes, on Ozempic. Last taken 04/25 Labs from 08/20/2025 reviewed and acceptable for procedure today Prior EKG showing sinus bradycardia with a HR of 58 Plan for spinal anesthetic Medications/Allergies Home Medications ?Medication ?Instructions ?Recorded ?Confirmed ?Last Taken ?Type acetaminophen 500 mg tablet 1,000 mg (2 x 500 mg) PO BID PRN 11/26/23 08/20/25 08/17/25 Rx Held on 04/27/25. pain 90 days #360 tabs Instructions: Until 15 days of 3 times per day Bedside Toilet #1 ea 04/12/24 08/17/25 04/25/25 Rx semaglutide 7 mg tablet (Rybelsus) 7 mg PO DAILY #30 tabs 03/23/25 08/20/25 2 Weeks Ago Rx Held on 08/17/25. ~08/06/25 Instructions: Doctor's Order miscellaneous medical supply #1 ea 04/23/25 08/17/25 04/25/25 Rx diclofenac sodium 1 % topical gel 2 g topical QID PRN Pain, Mild 04/25/25 08/20/25 2 Weeks Ago History (Voltaren Arthritis Pain) ~08/06/25 rosuvastatin 20 mg tablet 20 mg PO DAILY 04/25/25 08/20/25 08/20/25 History lisinopril 20 1 tab PO QAM 04/26/25 08/20/25 08/20/25 History mg-hydrochlorothiazide 25 mg tablet lisinopril 40 mg tablet 40 mg PO QPM 04/26/25 08/20/25 08/20/25 History celecoxib 100 mg capsule (Celebrex) 100 mg PO BID #180 caps 05/14/25 08/20/25 08/20/25 Rx hydralazine 50 mg tablet 50 mg PO BID #180 tabs 08/08/25 08/20/25 08/21/25 Rx diaper,brief,adult,disposable #120 ea 08/17/25 08/17/25 Unknown Rx wheelchair #1 ea 08/17/25 08/17/25 Unknown Rx Allergies Allergy/AdvReac Type Severity Reaction Status Date / Time No Known Allergies Allergy Verified 08/20/25 10:44 [facility] Anesthesia Medical History Urinary incontinence Antibiotic prophylaxis for dental procedure indicated due to prior joint replacement Breast pain, left Constipation Patient is scheduled for surgical procedure Osteoarthritis of left knee Rotator cuff arthropathy of left shoulder Primary osteoarthritis, left shoulder Osteoarthritis of right knee Elevated serum creatinine Elevated liver enzymes Obesity Metabolic syndrome Decreased renal function Vitamin D deficiency Urinary tract infection Primary osteoarthritis of both knees Enrolled in chronic care management Osteopenia Tricompartment osteoarthritis of both knees Postmenopausal Osteoarthritis, knee Osteoarthritis Chronic knee pain Shortness of breath Edema Colon cancer screening Arthritis pain Prediabetes Chest pain Hypertension Mixed hyperlipidemia Surgical History S/P hysterectomy S/P gastric surgery S/P cataract surgery Social History Smoking and tobacco/nicotine status: never used tobacco/nicotine Current occupation: Retired
[2025-08-21] MEDS: acetaminophen 1,000 MG/100 ML PIGGYBACK 400 MG IV ×3 (06:30→22:56)
--- NOTE | 2025-08-21 07:02 | P.HPUD_ITS ---
Surgery/Procedure H&P Update DATE OF PROCEDURE: August 21, 2025 DATE H&P PERFORMED: 08/20/25 H&P UPDATE INFORMATION: I have reviewed H&P completed within last 30 days, I have examined patient prior to procedure, No changes to prior documentation, H&P is in [facility] EMR on date indicated and Risks and benefits of the procedure reviewed PREOP DIAGNOSIS: Left Knee arthritis PLANNED PROCEDURE: Operation Date: 08/21/25 07:00 Proposed Procedures p LEFT Todd Robot Total Knee Arthroplasty(Left) - Natalya Uribe MD Related Problem List Diagnoses 1. Primary osteoarthritis of left knee: Qualifiers: Osteoarthritis type: primary
[2025-08-21] MEDS: ceFAZolin 2,000 mg SDV 2000 MG IVP ×3 (07:53→22:57)
[2025-08-21] MEDS: tranexamic acid 1,000 mg/10mL SDV 1000 MG IV (08:00)
[2025-08-21] MEDS: ceFAZolin 1,000 mg SDV 2000 MG IRRIGATION (08:13)
[2025-08-21] MEDS: SODIUM CHLORIDE 0.9% INJECTION (08:59)
[2025-08-21] MEDS: BUPIVACAINE LIPOSOME INJECTION (08:59)
[2025-08-21] MEDS: BUPIVACAINE 0.25% INJECTION (08:59)
--- NOTE | 2025-08-21 10:29 | PM.OP ---
Operative Report Date of procedure: August 21, 2025 Pre-op diagnosis: Severe osteoarthritis of the left knee with valgus deformity and hyperextension Post-op diagnosis: Severe osteoarthritis of the left knee with valgus deformity and hyperextension Post-op findings: Severe degenerative osteoarthritis, obesity with lower extremity significant adipose tissue, valgus deformity and hyperextension Procedure done: Left total knee arthroplasty with Todd guidance Implants: The [place] total knee system with a size 2 triathlon beaded cruciate retaining femur left, a triathlon titanium tibial component size 2 beaded, a triathlon X3 tibial bearing CS insert size 2 x 11 mm and a beaded triathlon titanium asymmetric patella size 32 x 10 mm Specimens removed/disposition: Bone, disposed of Pathology: None Surgeon: Natalya Uribe MD Advisory Services Associate: Mai Berger whose services were required for retraction, positioning, intraoperative exposure, and closure Anesthesia: Spinal (With MAC, ASA 2) Estimated blood loss (mL): 200 Tourniquet time (min): 0 (Not utilized) IV fluids (mL): 1,200 Urine output (mL): 100 Complications: None Findings: Severe degenerative osteoarthritis with the movement of cartilage Condition: stable Disposition: PACU (Then to floor for postoperative rehabilitation and pain management) Brief History: This 75-year-old woman presented with complaints of severe left knee pain. The patient has significant limitations in her activities of daily living. X-rays demonstrated severe degenerative osteoarthritis with valgus deformity. There was also hyperextension on physical exam. She failed anti-inflammatory medications, corticosteroid injections, viscosupplementation injections and physical therapy. Left total knee arthroplasty was discussed. Patient has done very well following right total knee arthroplasty and wishes to proceed with a similar surgery to the left knee. The patient wished to proceed with total knee arthroplasty understanding the risks and complications. She was seen the morning of surgery and given further opportunity to ask questions and have them answered. Procedure: The patient was brought to the operating theater, and after undergoing adequate spinal anesthesia with MAC, ASA 2, the left lower extremity was prepped with Dura-Prep and draped in usual fashion following placement of a tourniquet high on the leg. The leg was then draped free.? Tourniquet was not elevated throughout the surgical procedure. Prior to commencement of the procedure, a surgical pause was performed, and at the time of the surgical pause, we confirmed the site and side of surgery. Additionally, we confirmed the appropriate and timely administration of preoperative antibiotics, Ancef 2 g.? The availability of equipment was confirmed, and the patient's identity was verbalized as well. Following the surgical pause, an incision was made centering over the patella continuing proximally and distally as necessary to allow access to the knee joint. Dissection continued through skin and soft tissues using a scalpel. Hemostasis was obtained using electrocautery. The skin incision was followed by a median parapatellar arthrotomy. The leg was extended and the patella was able to be displaced laterally.? Appropriate arrays and markers were placed in appropriate position for use of the Todd.? Preoperative planning had been accomplished and was discussed in detail with the [facility] malt liquors sales representative.? Intraoperative mapping of the femur and tibia was accomplished after the arrays were placed.? Internal markers were also placed.? Once we had accomplished the Todd mapping, we began the appropriate resections for placement of the prosthesis.? The plan was for a cruciate retaining left total knee arthroplasty. Once appropriate mapping had been accomplished retraction was established using manual retraction by surgical technicians and also the Todd leg positioner and retractors.? The knee was evaluated.? There was significant osteoarthritic change as well as a significant flexion contracture and severe varus deformity.? Appropriate bone resection was accomplished using the Todd.? The femur was sized to a size 2.? Following femoral cuts, attention was directed to the tibia.? Osteophytes were removed prior to this portion of the procedure.? We had performed a medial release at the beginning of the procedure to allow for placement of the array.? Proximal tibia was evaluated, and it was felt that appropriate size for the tibia was a size 2.? The size 2 tray was noted to fit nicely with good coverage.? Rim fit was accomplished with the size 2. A trial reduction was accomplished after osteophytes have been removed as well as the medial and lateral menisci.? We had removed the anterior cruciate ligament at the beginning of the case and preserved the posterior cruciate ligament.? Trial reduction was accomplished with a size 2 femoral cruciate retaining component, a size 2 tibial tray and a size 2 CS tibial bearing insert which initially was a 10 mm thickness. After trial with this, a trial reduction was accomplished with a size 2 x 10 mm tibial bearing insert, CS. After this trial, plans were made for an 11 mm CS tibial bearing insert. Alignment was felt to be appropriate as well.? Trial components were removed after the femur had been drilled.? Prior to removal of the tibial tray which had been pinned in position with appropriate rotation as determined by the Todd plan, we broached the tibia.? Subsequently, the 4 drill holes were made for the prosthetic component.? All trial components were removed, and the wound was irrigated.? Plans were made for insertion of the prosthetic components.? Prior to this, the patella was manually prepared.? After resection of the articular surface with the jogging system, it was measured and measured a 32 mm patella.? We resected approximately 7 mm of patella.? Patellar height was restored with the patellar component. Once again, the wound was irrigated. The Tritanium tibia was impacted into position.? The beaded femur was then impacted into position in a cementless fashion. The CS tibial insert was placed prior to placement of the femoral component. The patella was pressed into position with a patellar clamp.? Exparel was injected about the components deep and superficially.? The knee was then copiously irrigated with betadine and saline and suctioned dry. Attention was then directed to closure. Closure was accomplished with 0 Vicryl in the fascial tissues.? The suture line of 0 Vicryl was supplemented with strata fix, #1, with a running suture from proximal to distal and a second running stitch from distal to proximal.? This was followed by Surgiflo and vancomycin powder.? Following this, a 2-0 Strata Fix was used in the subcutaneous tissues, and the skin was closed with 3-0 Strata fix.? Care was taken to assure an excellent subcutaneous as well as skin closure.? A sterile dressing was then placed consisting of Dermabond Prineo, OpSite, ABD, sterile soft roll, and an Nam wrap including over the foot. The patient was returned the Recovery Room in a satisfactory condition. X-rays were obtained and reviewed there.? The patient will be discharged to the floor for postoperative rehabilitation and pain management. Related Problem List Diagnoses 1. Primary osteoarthritis of left knee: 2. Acquired genu valgum of left knee:
--- NOTE | 2025-08-21 10:30 | XRR_ITS ---
PROCEDURE INFORMATION: Exam: XR Left Knee Exam date and time: 08/21/2025 10:49 AM Age: 75 years old Clinical indication: Device placement; Joint replacement hardware; Prior surgery; Surgery date: Post-operative (0-2 days); Surgery type: Status post left total knee arthroplasty TECHNIQUE: Imaging protocol: Radiologic exam of the left knee. Views: 1 or 2 views. COMPARISON: 1. CT knee LT [place] [id number] 07/27/2025 12:18 PM 2. CR XR knees AP WB w LT lmt ORTH 07/20/2025 10:16 AM FINDINGS: Bones/joints: Interval knee arthroplasty. No additional new appearing displaced fracture nor dislocation seen. Gas, fluid densities project about knee, leg. Soft tissues: Normal. Vasculature: Arterial calcification. XR/XR knee LT 1-2V [id number] IMPRESSION: Post knee arthroplasty.
[2025-08-21] MEDS: fentaNYL 50 mcg/mL INJ 2mL IVP ×2 (10:50→10:58)
--- NOTE | 2025-08-21 11:33 | ANE.PACU2 ---
Inpatient post-anesthesia follow up: Airway intact: Yes Vital signs: Temperature 97.5 F Pulse Rate 65 Respiratory Rate 18 Blood Pressure 181/84 Pulse Oximetry 96 Oxygen Delivery Me thod Room Air Oxygen Flow Rate 10 Fraction of Inspir ed Oxygen Hydration adequate: Yes Nausea and vomiting: No Pain level: 2 Mental status: Baseline
[2025-08-21] MEDS: oxyCODONE 5 mg IR Tab/Cap PO ×3 (13:22→22:00)
[2025-08-21] MEDS: tranexamic acid 1,000 MG/100 ML PREMIX 600 MG IV (13:25)
[2025-08-21] MEDS: sennosides-docusate Tablet 2 TAB PO (16:56)
[2025-08-21] MEDS: mupirocin oint 22 gm 1 APPLIC NASAL (16:57)
[2025-08-22 02:51] VITALS: RESP 16; O2SAT 98
[2025-08-22] MEDS: oxyCODONE 5 mg IR Tab/Cap PO ×3 (02:51→15:21)
[2025-08-22 05:43] LABS: Hematocrit 36.8 % (36-47); Hemoglobin 11.70 g/dL (11.27-16.99); Mean Corpuscular HGB Conc 31.8 g/dL (30-55); Mean Corpuscular Hemoglobin 28.1 pg (27-33); Mean Corpuscular Volume 88.5 fl (85-98); Nucleated Red Blood Cells % 0 %; Platelet Count 199 10^3/cmm (157-399); Red Blood Count 4.16 10^6/uL (3.85-5.65); White Blood Count 12.03 10^3/uL (3.29-11.43)
[2025-08-22] MEDS: sennosides-docusate Tablet 2 TAB PO (05:57)
[2025-08-22] MEDS: multivitamin therapeutic Tablet 1 TAB PO (05:57)
[2025-08-22] MEDS: ondansetron 2 mg/ML SDV 2 mL 4 MG IVP (05:58)
[2025-08-22] MEDS: mupirocin oint 22 gm 1 APPLIC NASAL (06:01)
[2025-08-22 06:16] LABS: Anion Gap 19.0 (5-19); Blood Urea Nitrogen 25 mg/dL (8-23); Calcium 9.4 mg/dL (8.5-10.5); Carbon Dioxide 21 mmol/L (22-29); Chloride 101 mmol/L (98-107); Creatinine Clr Calc Pharmacy 64.6489; Glucose 142 mg/dL (65-115); Osmolality Calculated 291 mOsm/kg (285-295); Potassium 4.0 mmol/L (3.5-5.1); Sodium 137 mmol/L (136-145)
[2025-08-22] MEDS: acetaminophen 1,000 MG/100 ML PIGGYBACK 400 MG IV (06:27)
[2025-08-22 07:32] VITALS: BP 199/64; PULSE 65; RESP 18; TEMP 36.4; O2SAT 96
[2025-08-22 07:41] VITALS: BP 181/84
[2025-08-22] MEDS: ceFAZolin 2,000 mg SDV 2000 MG IVP (08:26)
--- NOTE | 2025-08-22 09:24 | PC.CHAP ---
Pastoral Care Encounter/Spiritual Assessment Type of Contact [] Declined power generation technician visit [] Patient/Family/Request visit [] Outpatient visit [] Follow-up visit [] Physician referral [] Code/Alert [x] Routine visit [] Staff referral [] Actively dying [] Patient sleeping [] Family support [] [] Out of room [] Palliative care [] [] Receiving care in room [] Pre-surgical visit [] Trauma [] Long length of stay [] ICU visit [] Other: Relational/Emotional Strength [x] Patient feels connected with others/family/visitors/staff [] Distress [] Loneliness/isolation [] Abandonment Spirituality of Patient [x] Person of Lorelei [] Attends Rastafarian of their [place] [x] Believes in Prayer [] Reads Bible or Gnosticism materials [] There are Spiritual issues to be addressed Switch Adjuster Interventions [x] Prayer [x] Active listening [] Non-anxious presence [x] Spiritual/emotional support [] Crisis/trauma care [] Spiritual counseling [] Bereavement support [] Provided bereavement packet [] Provided Bible/devotional materials [] Provided toy/stuffed animal, coloring book to patient or family member [] Provided Communion [] Anointing/[place] [] Salvation [x] Completed spiritual assessment [] Other: Impact on Illness or Injury [] Angry [] Fearful [] Anxious [] Often cries [] Exhaustion [] Unable to work [] Unable to attend rastafari [] Unable to walk/stand [] Unable to read [] Unable to drive [] Unable to eat/drink [] Unable to sleep [] Unable to be with family [] Patient intubated [] Other: Summary Time spent with patient 5 min
[2025-08-22 11:04] VITALS: BP 175/78; PULSE 79; RESP 18; TEMP 36.4; O2SAT 98
--- NOTE | 2025-08-22 13:14 | PM.DCS ---
Discharge Providers Date of Admission: 08/21/25 09:51 Date of Discharge: August 22, 2025 Attending Provider at Admission: Natalya Uribe MD Attending Provider at Discharge: Natalya Uribe MD Primary Care Provider: JAIRON Rodarte Diagnoses at Discharge Discharge Diagnosis 1. Primary osteoarthritis of left knee: 2. Acquired genu valgum of left knee: 3. Status post total left knee replacement not using cement: Reason for Visit Reason for Visit: M17.12 Brief History: This 75-year-old woman presented with complaints of severe left knee pain. The patient has significant limitations in her activities of daily living. X-rays demonstrated severe degenerative osteoarthritis with valgus deformity. There was also hyperextension on physical exam. She failed anti-inflammatory medications, corticosteroid injections, viscosupplementation injections and physical therapy. Left total knee arthroplasty was discussed. Patient has done very well following right total knee arthroplasty and wishes to proceed with a similar surgery to the left knee. The patient wished to proceed with total knee arthroplasty understanding the risks and complications. She was seen the morning of surgery and given further opportunity to ask questions and have them answered. Hospital Course Hospital Course This 65-year-old woman presented with complaints of left knee pain with valgus deformity and hyperextension. Initially, when she presented to the office, she had problems with both knees and she underwent right total knee arthroplasty in April this year. She did well following this and wished to proceed with total knee arthroplasty on the left. Risks and complications of surgery were discussed with her. Consents were signed and questions were answered. She had further opportunity to have questions asked and answered on the morning of surgery. Physical Exam Const: COMMON NORMALS: no acute distress, average body habitus, patient oriented x3 and alert GENERAL APPEARANCE: cooperative and comfortable ORIENTATION/CONSCIOUSNESS: Yes awake HENMT: COMMON NORMALS: normocephalic and atraumatic HEAD & SCALP: normocephalic and atraumatic Eye: GENERAL EYE: appearance normal, both eyes and all related structures Chest: COMMONS NORMALS: normal inspection of the chest Resp: COMMON NORMALS: normal respiratory effort EFFORT & INSPECTION: Yes able to speak in complete sentences and Yes symmetric chest movement Extremity: LEFT LOWER EXTREMITY: Yes knee joint (Large outer dressing was removed. Remaining dressing was dry and intact.) Left knee: Yes inspection, Yes palpation (No significant tenderness), Yes ROM (Able to partially straight leg raise) and Yes neurovascular exam (Intact distally with no evidence of DVT) Neuro: COMMON NORMALS: patient oriented x3 SENSORIUM/ORIENTATION: Yes alert Psych: COMMON NORMALS: mental status grossly normal APPEARANCE: Yes grossly normal ATTITUDE: Yes calm and Yes engaged ATTENTION/CONCENTRATION: Yes attention grossly intact Skin: COMMON NORMALS: no rashes or lesions noted GENERAL SKIN EXAM: no rashes or lesions noted Urinary Catheter Management: Campos: Cath Placed During This Visit: yes, but has since been removed by the nurse Reason for Continuing Indwelling Catheter: Decision to DC Catheter Date Urinary Catheter Removed: 08/22/25 Time Urinary Catheter Discontinued: 06:43 Discharge Data Studies Completed and Pending Completed Studies During Hospitalization Category Date Time Status XR knee LT 1-2V [id number] Routine Exams 08/21/25 10:30 Completed Radiology Impressions Knee X-Ray 08/21/25 10:30 IMPRESSION: Post knee arthroplasty. Laboratory Results WBC 12.03 10^3/uL (3.29-11.43) H 08/22/25 05:36 RBC 4.16 10^6/uL (3.85-5.65) 08/22/25 05:36 Hgb 11.70 g/dL (11.27-16.99) 08/22/25 05:36 Hct 36.8 % (36-47) 08/22/25 05:36 MCV 88.5 fl (85-98) 08/22/25 05:36 MCH 28.1 pg (27-33) 08/22/25 05:36 MCHC 31.8 g/dL (30-55) 08/22/25 05:36 RDW 14.9 % (12.1-15.1) 08/22/25 05:36 Plt Count 199 10^3/cmm (157-399) 08/22/25 05:36 MPV 9.5 fL (7.4-10.4) 08/22/25 05:36 Neut % (Auto) 77.4 % 08/22/25 05:36 Lymph % (Auto) 14.4 % 08/22/25 05:36 [place] % (Auto) 6.9 % 08/22/25 05:36 Eos % (Auto) 0.4 % 08/22/25 05:36 Baso % (Auto) 0.2 % 08/22/25 05:36 Neut # (Auto) 9.32 10^3/uL (1.8-7.7) H 08/22/25 05:36 Lymph # (Auto) 1.7 10^3/uL (0.8-4.8) 08/22/25 05:36 [place] # (Auto) 0.8 10^3/uL (0.2-0.9) 08/22/25 05:36 Eos # (Auto) 0.1 10^3/uL (0.0-0.8) 08/22/25 05:36 Baso # (Auto) 0.0 10^3/uL (0.0-0.1) 08/22/25 05:36 Nucleated RBC % (auto) 0 % 08/22/25 05:36 Nucleated RBCs # 0.0 /100WBC 08/22/25 05:36 Sodium 137 mmol/L (136-145) 08/22/25 05:36 Potassium 4.0 mmol/L (3.5-5.1) 08/22/25 05:36 Chloride 101 mmol/L (98-107) 08/22/25 05:36 Carbon Dioxide 21 mmol/L (22-29) L 08/22/25 05:36 Anion Gap 19.0 (5-19) 08/22/25 05:36 BUN 25 mg/dL (8-23) H 08/22/25 05:36 Creatinine 0.8 mg/dL (0.5-0.9) 08/22/25 05:36 GFR Calculation Not Reportable 08/22/25 05:36 Glucose 142 mg/dL (65-115) H 08/22/25 05:36 Calculated Osmolality 291 mOsm/kg (285-295) 08/22/25 05:36 Calcium 9.4 mg/dL (8.5-10.5) 08/22/25 05:36 Vitals Last Vital Signs Temp 97.5 F L 08/22/25 11:04 Pulse 79 08/22/25 11:04 Resp 18 08/22/25 11:04 BP 175/78 08/22/25 11:04 Pulse Ox 98 08/22/25 11:04 O2 Del Method Room Air 08/22/25 11:04 O2 Flow Rate 10 08/21/25 10:52 Discharge Plan Discharge Patient Disposition: Home Health Service Condition: Stable Prescriptions: New acetaminophen 500 mg Tablet 1,000 mg PO Q8H 15 Days Qty: 90 0RF aspirin 325 mg Tablet,Delayed Release (Dr/Ec) 325 mg PO DAILY 30 Days Qty: 30 0RF oxycodone 5 mg Tablet 5 mg PO Q4H PRN (Reason: Moderate To Severe Pain) 7 Days Qty: 40 0RF celecoxib 200 mg Capsule 200 mg PO 1XD 30 Days Qty: 30 0RF Continued (DME) wheelchair See Rx Instructions .Route .MEDSUPPLY Qty: 1 0RF Rx Instructions: As directed (DME) diaper,brief,adult,disposable Misc See Rx Instructions .Route Qty: 120 5RF Rx Instructions: Adult - Pullup brief Q 4 hrs PRN (DME) Bedside Toilet See Rx Instructions .Route .MEDSUPPLY Qty: 1 0RF Rx Instructions: As directed Rybelsus 7 mg tablet 7 mg PO DAILY Qty: 30 1RF (DME) miscellaneous medical supply Misc See Rx Instructions .Route Qty: 1 0RF Rx Instructions: As directed Bedside Commode kit for PRN use. hydralazine 50 mg tablet 50 mg PO BID Qty: 180 0RF rosuvastatin 20 mg tablet 20 mg PO DAILY diclofenac sodium [Voltaren Arthritis Pain] 1 % gel 2 g topical QID PRN (Reason: Pain, Mild) Rx Instructions: apply to area of pain lisinopril-hydrochlorothiazide 20-25 mg tablet 1 tab PO QAM Held celecoxib [Celebrex] 100 mg capsule 100 mg PO BID Qty: 180 0RF Hold Instructions: Resume after 200mg dose for 1 month acetaminophen 500 mg tablet 1,000 mg PO BID PRN (Reason: pain) 90 Days Qty: 360 1RF Hold Instructions: Until 15 days of 3 times per day Discharge Order = DC NOW: Discharge Order (Routine); Ordered 08/22/25 Ordered By: Natalya Uribe Referrals: Nils [Other] Natalya Uribe MD [Physician, Orthopedics] - 09/03/25 10:45 am Discharge Diet: Advance as tolerated and Usual diet Discharge Activity: Increase activity as tolerated, Limit activity as instructed, Use walker/crutches as instructed and As per PT/OT instructions Patient Instructions: Oxycodone, Rapid Release (By mouth), Celecoxib (By mouth), Acute Wound Care (DC), Operative Knee Arthroscopy (DC), Opioid Safety, Post Anesthesia Care, Patient Portal & Ashok Instructions Activity Restrictions/Additional Instructions: Ice and elevation to left knee. You may weight-bear as tolerated. Range of motion, running, and gait training per physical therapy. You may shower, but do not submerge your knee in standing water. Discharge Attestations Time Spent in Discharge Care*: greater than 30 min Specific Discharge Activities: educating patient, documenting/other paperwork and evaluating patient/reviewing data Quality Metrics Clinical Quality Measures [ No reported AMI, CVA or VTE this stay] Coding Level of Care Code Acute Code for Chg Fwd Diagnoses Primary osteoarthritis of left knee M17.12 Osteoarthritis type: primary Acquired genu valgum of left knee M21.062 Status post total left knee replacement not using cement Z96.652
[2025-08-22 15:21] VITALS: RESP 18
[2025-08-22 15:39] VITALS: BP 197/71; PULSE 82; RESP 18; TEMP 36.7; O2SAT 96
== END 2025-08-22 16:20 | disposition home health service (06) ==
LOC: MEDSURG 09:53
PROVIDERS: Admitting Provider Specialist; PCP Nurse Practitioner Family; Visit Provider Specialist
PROC: 8E0Y0CZ Robotic Assisted Procedure of Lower Extremity, Open Approach (ICD-10-PCS; CPT 27447; principal; 2025-08-21 07:00)
DX: M17.12 Unilateral primary osteoarthritis, left knee (principal); M21.062 Valgus deformity, not elsewhere classified, left knee; I12.9 Hypertensive chronic kidney disease with stage 1 through stage 4 chronic kidney disease, or unspecified chronic kidney disease; N18.9 Chronic kidney disease, unspecified; E66.9 Obesity, unspecified; Z68.38 Body mass index [BMI] 38.0-38.9, adult; E78.2 Mixed hyperlipidemia; R73.03 Prediabetes
CPT/HCPCS: 27447; 20985; 36415; 73560; 80048; 85025; 97110; 97116; 97161; 97165; 97530; A4216; A4649; A9281; C1776; G0378; J0131; J0666; J0690; J2250; J2371; J2405; J2704; J3010; J3373; J7030; J9999

== ENCOUNTER → 2025-09-03 11:01 | Outpatient (BNVA) | payer MEDICARE, MEDICAID, SELFPAY | PROVIDERS: PCP Nurse Practitioner Family; Visit Provider Nurse Practitioner | DX: Z98.890 Other specified postprocedural states (principal); Z96.652 Presence of left artificial knee joint | CPT/HCPCS: 99024 ==

== ENCOUNTER 2025-09-26 11:57 | Outpatient (RCR) | payer MEDICARE, MEDICAID, SELFPAY | END 2025-09-30 23:59 | disposition home or self-care (01) | LOC: WPT 11:57 | PROVIDERS: PCP Nurse Practitioner Family; Visit Provider Nurse Practitioner | DX: Z47.1 Aftercare following joint replacement surgery (principal); Z96.652 Presence of left artificial knee joint | CPT/HCPCS: 97110; 97112; 97162; 97530 ==

== ENCOUNTER → 2025-10-12 07:51 | Outpatient (BNVA) | payer MEDICARE, MEDICAID, SELFPAY | PROVIDERS: PCP Nurse Practitioner Family; Visit Provider Nurse Practitioner | DX: Z98.890 Other specified postprocedural states (principal); Z96.652 Presence of left artificial knee joint | CPT/HCPCS: 73560; 73565; 99024 ==

== ENCOUNTER 2025-10-31 08:58 | Outpatient (RCR) | payer MEDICARE, MEDICAID, SELFPAY | END 2025-10-31 23:59 | disposition home or self-care (01) | LOC: WPT 08:58 | PROVIDERS: PCP Nurse Practitioner Family; Visit Provider Nurse Practitioner | DX: Z47.89 Encounter for other orthopedic aftercare (principal) | CPT/HCPCS: 97110; 97112; 97530 ==